=== PATIENT | male | born 1990 | race Caucasian/White ===

== ENCOUNTER 2023-08-31 15:08 | Emergency (ER) | payer SELFPAY ==
[2023-08-31] VITALS (17 sets, daily range): BP systolic 75–142; BP diastolic 47–99; PULSE 55–102; RESP 17–29; TEMP 36.6–36.8; O2SAT 100
[2023-08-31 16:46] LABS: Basophils Percent Auto 0.7 % (0.2-1.2); Eosinophils Percent Auto 0.5 % (0-4.4); Hematocrit 44.4 % (42.0-52.0); Hemoglobin 14.6 g/dL (14.0-18.0); Immature Granulocyte Absolute 0.01 K/mm3 (0.00-0.031); Immature Granulocyte Percent A 0.2 % (0-0.5); Lymphocytes Absolute Auto 1.68 K/mm3 (0.9-3.2); Lymphocytes Percent Auto 27.9 % (18.3-44.2); Mean Corpuscular HGB Conc 32.9 g/dl (32-36); Mean Corpuscular Hemoglobin 28.9 pg (26-34); Mean Corpuscular Volume 87.7 fl (80-100); Mean Platelet Volume 10.1 fl (7.4-10.4); Monocytes Absolute Auto 0.7 K/mm3 (0.1-0.6); Monocytes Percent Auto 12.1 % (2.6-8.5); Neutrophils Absolute Auto 3.5 K/mm3 (1.3-6.7); Neutrophils Percent Auto 58.6 % (45.5-73.1); Platelet Count Result 267 k/mm3 (150-375); Red Blood Count 5.06 M/mm3 (4.6-6.20); Red Cell Distribution Width 11.1 % (11.5-14.5)
[2023-08-31] MEDS: ONDANSETRON INJ 4 MG/2 ML VIAL IV PUSH (16:55)
[2023-08-31 16:56] LABS: Alanine Aminotransferase 23 U/L (6-50); Albumin Level 4.6 g/dL (3.5-5.1); Alkaline Phosphatase 74 U/L (38-126); Anion Gap 9 mmol/L (8-16); Aspartate Amino Transferase 27 U/L (17-59); Bilirubin,Total 0.9 mg/dL (0.2-1.3); Blood Urea Nitrogen 17 mg/dL (9-20); Calcium 9.6 mg/dL (8.4-10.2); Carbon Dioxide 27 mmol/L (22-30); Chloride 102 mmol/L (98-107); Estimated CRCL calculation 99 ml/min; Estimated Glomerular Filt Rate > 60; Glucose 103 mg/dL (65-110); Lipase 76 U/L (23-300); Potassium 3.9 mmol/L (3.4-5.0); Sodium 138 mmol/L (137-145)
--- NOTE | 2023-08-31 17:17 | ED.GENADULT ---
HPI - General Adult General Chief complaint: Recheck/Abnormal Lab/Rx Stated complaint: orthostatic Time Seen by Provider: 08/31/23 16:33 History of Present Illness HPI narrative: Patient is a 32-year-old male with history of opiate use disorder here with generalized weakness, fatigue, near syncope, nausea, vomiting, diarrhea. He has used opiates for many years, last used approximately 5 days ago. He has previously thought that he was snorting heroin but did test positive for fentanyl. He has been in [facility] for opiate use disorder since his last use. He notes that withdrawal symptoms began about 4 days ago which included nausea, vomiting, diarrhea. The following day he felt lethargic and had difficulty getting out of bed and moving around due to his fatigue. He notes he has had hardly any p.o. intake since being admitted to [facility]. Patient believes that his nausea, vomiting and diarrhea have improved significantly but he continues to feel fatigued. He believes he has gotten through most of his acute withdrawal symptoms at this time. No cough, congestion, sick contacts. Related Data Allergies Allergy/AdvReac Type Severity Reaction Status Date / Time ibuprofen Allergy Swelling Verified 08/31/23 16:01 Review of Systems Review of Systems: All systems reviewed & are unremarkable except as noted in HPI and below Exam Narrative: GENERAL: Well-appearing, well-nourished, and in no acute distress. HEAD: Normocephalic, atraumatic. EYES: PERRLA and EOMI. ENT: Nares clear. Mucous membranes dry. NECK: Supple. CHEST: Clear to auscultation. No respiratory distress. HEART: Regular rate and rhythm. Normal peripheral pulses. ABDOMEN: Soft, nontender, nondistended. EXTREMITIES: Normal range of motion. No edema. SKIN: Warm, dry, no rash. NEURO: No focal deficits. Alert and oriented x3. PSYCH: Normal mood and affect. Course Course Emergency Course: Chart review performed. Spoke with referring physician prior to transfer. Patient here from [facility] where he is being treated for opiate use disorder. He has bee having nausea and vomiting there. He has been unable to keep anything down. He reported light headedness and near syncope as well. He had positive orthostats at [facility] and was transferred here. Suboxone has not been initiated yet per referring physician. Patient seen and evaluated, ill appearing. BP appears to be improving with IVF. Basic lab work ordered for nausea, vomiting and diarrhea. Will do EKG given near syncope. 30 cc/kg IVF bolus ordered. Zofran ordered for nausea. Patient tolerating PO, orthostats have improved. Patient feeling well and requesting to be sent back to [facility] substance treatment program. The results of pertinent diagnostic studies and exam findings were discussed. The patient?s provisional diagnosis and plan of care were discussed with the patient and present family. The patient and/or present family expressed understanding of the diagnosis and plan. The nurse was instructed to provide written instructions and appropriate follow-up information. The patient understands their need and responsibility to obtain additional follow-up as instructed. The risks of medications administered and prescribed were discussed with the patient and family present. Patient discharged back to [facility] detox program, picked up by their program and transported back. Vital Signs Vital signs: Vital Signs Temperature 98.3 F 08/31/23 15:53 Pulse Rate 79 08/31/23 15:53 Respiratory Rate 20 08/31/23 15:53 Blood Pressure 107/59 L 08/31/23 15:53 Pulse Oximetry 100 08/31/23 15:53 Oxygen Delivery Room Air 08/31/23 15:53 Temperature 97.8 F 08/31/23 21:01 Pulse Rate 63 08/31/23 21:01 Respiratory Rate 21 H 08/31/23 21:01 Blood Pressure 142/88 H 08/31/23 21:01 Pulse Oximetry 100 08/31/23 21:01 Oxygen Delivery Room Air 08/31/23 15:53 Medical Decision Making Vital Signs Vital Signs:
--- NOTE | 2023-08-31 17:42 | ECG_ITS ---
Measurements Intervals [place] Rate: 64 P: 77 AK: 154 QRS: 76 QRSD: 89 T: 27 QT: 426 QTc: 443 Interpretive Statements SINUS RHYTHM WITH SINUS ARRHYTHMIA NONSPECIFIC ST & T-WAVE ABNORMALITY NO PREVIOUS ECG AVAILABLE FOR COMPARISON Electronically Signed On 09-01-2023 12:28:21 [employer] CATHETER[employer] TECHNOLOGIST by Ishmael Harris M.D.
[2023-08-31 18:45] LABS: Appearance Urine Clear (Clear); Bilirubin Urine Negative (Negative); Blood Urine Negative (Negative); Color Urine Yellow (Yellow); Glucose Urine UA Negative (Negative); Ketones Urine 1+ mg/dL (Negative); Leukocyte Esterase Ur Negative LEU/UL (Negative); Nitrate Urine Negative (Negative); Protein Urine Negative (Negative); Specific Grav Ur 1.012 (1.001-1.035); Urobilinogen Urine 0.2 mg/dL (<2.0)
[2023-08-31 18:47] LABS: Add Urine Microscopic? NO
[2023-08-31 19:03] LABS: Amphetamine Screen Urine Negative (Negative); Barbiturate Screen Urine Negative (Negative); Benzodiazepines Screen Urine Negative (Negative); Cannabinoid Screen Urine Positive (Negative); Cocaine Screen Urine Negative (Negative); Methadone Screen Urine Negative (Negative); Opiate Screen Urine Negative (Negative); Phencyclidine Screen Urine Negative (Negative)
--- NOTE | 2023-08-31 20:48 | PC.NURSE ---
PO challenge passes well, Dr Iniguez notified.
[2023-08-31 23:43] LABS: Influenza A QL RT-PCR Negative (Negative); Influenza B QL RT-PCR Negative (Negative); RSV RNA, RT-PCR Negative (Negative); SARS-CoV-2 RNA PCR Negative (Negative)
== END 2023-08-31 21:36 ==
PROVIDERS: Emergency Medicine; Emergency Provider Student in an Organized Health Care Education/Training Program
DX: I95.1 Orthostatic hypotension (principal); R11.2 Nausea with vomiting, unspecified; R19.7 Diarrhea, unspecified; F11.90 Opioid use, unspecified, uncomplicated; Z20.822 Contact with and (suspected) exposure to COVID-19
CPT/HCPCS: 36415; 80053; 80307; 81003; 83690; 85025; 87637; 93005; 96374; 99284; J2405; J7120